=== PATIENT | male | born 1965 | race Two or more races ===

== ENCOUNTER 2019-06-21 19:33 | Emergency (ER) | payer OTHER ==
[2019-06-21 19:55] VITALS: BP 152/97; PULSE 70; TEMP 98.1; BMI 28.1
[2019-06-21] MEDS ORDERED: KETOROLAC TROMETHAMINE 30 MG/1 ML VIAL IVPUSH ONE (19:59)
[2019-06-21] MEDS ORDERED: KETOROLAC TROMETHAMINE 30 MG/1 ML VIAL ONE (20:08)
[2019-06-21 20:31] LABS: BASO % 0.3 % (0-2.0); EOS % 0.7 % (0-4.5); HEMATOCRIT 43.2 % (35.4-49); HEMOGLOBIN 14.7 GM/dl (11.7-16.9); LYMPH % 15.9 % (8-40); MEAN CELL VOLUME 88.3 fl (80-96); MEAN PLT VOLUME 9.1 fl (7.5-11.1); MONO % 6.7 % (3.8-10.2); NEUT % 76.4 % (42.8-82.8); PLATELET COUNT 241 K/MM3 (134-434); RBC 4.89 M/mm3 (4.00-5.60); RDW 11.6 % (11.9-15.9); WHITE BLOOD COUNT 10.6 K/mm3 (4.0-10.8)
[2019-06-21 20:37] LABS: ALBUMIN 4.2 g/dl (3.4-5.0); CALCIUM 9.1 mg/dl (8.5-10); CREATININE 1.3 mg/dl (0.55-1.3); POTASSIUM 3.5 mmol/L (3.5-5.1); TOT PROT 7.7 g/dl (6.4-8.2)
--- NOTE | 2019-06-21 20:42 | PDOC ---
Documentation entered by Sherley Ortiz SCRIBE, acting as scribe for Julio C Lucas MD. Julio C Lucas MD: This documentation has been prepared by the bullibe, Sherley Ortiz SCRIBE, under my direction and personally reviewed by me in its entirety. I confirm that the documentation accurately reflects all work , treatment, procedures, and medical decision making performed by me. History of Present Illness - General Chief Complaint: Pain, Acute Stated Complaint: ABD PAIN History Source: Patient Exam Limitations: No Limitations - History of Present Illness Initial Comments: 06/21/19 20:24 The patient is a 53-year-old male who presents to the emergency department with abdominal pain and urinary retention. The patient presents with lower abdominal pain that radiates down to the suprapubic region, associated with difficulty voiding. The patient reports he gets the urge to void, however when he goes to the bathroom, very little urine comes out. The patient reports he last urinated normally around 3:30 pm. Denies nausea, vomiting, chest pain, shortness of breath, fever, chills, back pain, flank pain. Denies hx of kidney stones or urinary retention. PAST MEDICAL HISTORY: no significant history PAST SURGICAL HISTORY: no significant history FAMILY HISTORY: no pertinent history SOCIAL HISTORY: Pt lives with family and is employed. MEDICATIONS: reviewed ALLERGIES: As per nursing notes Review of system: General: No fevers or chills, no weakness, no weight loss HEENT: No change in vision. No sore throat,. No ear pain CardioVascular: No chest pain or shortness of breath Respiratory:No cough, or wheezing. Gastrointestinal: +abdominal pain. no nausea, vomiting, diarrhea or constipation, No rectal bleeding Genitourinary: +difficulty voiding. No dysuria, hematuria, or frequency Musculoskeletal: No joint or muscle pain or swelling Neurologic: No headache, vertigo, dizziness or loss of consciousness Psychiatric: nor depression Skin: No rashes or easy bruising Endocrine: no increased thirst or abnormal weight change Allergic: no skin or latex allergy All other systems reviewed and normal Physical exam: General: Well-nourished well-developed individual, no acute distress HEENT: Throat: Normal, tonsils normal, no erythema or exudate Neck: Supple, no meningeal signs, no lymphadenopathy Eyes :Pupils equal reactive and round, extraocular motion intact Chest: Nontender to palpation Cardiac: S1-S2 normal, regular rate and rhythm, no murmurs rubs or gallops Respiratory: Lungs clear to auscultation bilateral Abdomen: +tenderness on palpation of the lower abdominal/suprapubic area, no rebound, no flank pain or CVA tenderness. Extremities: Warm, dry, no cyanosis, clubbing, or edema Skin: No rashes Neuro: Alert and oriented x3, nonfocal exam, grossly intact, normal gait Psych: Normal mood and affect. 06/21/19 20:39 Assessment and plan: This is a 53-year-old male who comes in complaining of lower abdominal pain radiating to his testicles. Patient denies history of similar pain in the past. Patient denies history of any blood in his urine or kidney stones. Work-up initiated including spiral CT that showed a 3 mm stone at the right UVJ. Patient's pain resolved in the ED prior to discharge. However I sent a prescription to the pharmacy for naproxen. Otherwise patient's blood work was unremarkable with a normal white count and no evidence of a urinary tract infection. Patient instructed to follow-up with a urologist. 06/21/19 20:40 Past History - Past Medical History Allergies/Adverse Reactions: Allergies Allergy/AdvReac Type Severity Reaction Status Date / Time No Known Allergies Allergy Unverified 06/27/12 03:31 Home Medications: Ambulatory Orders No Home Medications 0 appful .ROUTE DAILY 06/27/12 Naproxen [Naprosyn] 500 mg PO BID #10 tablet 06/21/19 - Immunization History Td Vaccination: No - Psycho Social/Smoking Cessation Hx Smoking Status: No Smoking History: Never smoked Number of Cigarettes Smoked Daily: 0 Hx Alcohol Use: No Abd/GI Specific PMHX - Complaint Specific PMHX Colitis: No Diverticulitis: No Gall Bladder Disease: No GERD: No Hepatitis: No Irritable Bowel Synd (IBS): No Pancreatitis: No GI Ulcer Disease: No *Physical Exam - Vital Signs Last Vital Signs Temp Pulse Resp BP Pulse Ox 98.1 F 70 18 152/97 100 06/21/19 19:34 06/21/19 19:34 06/21/19 19:34 06/21/19 19:34 06/21/19 19:34 ED Treatment Course - LABORATORY CBC & Chemistry Diagram: 06/21/19 20:05 06/21/19 20:05 - ADDITIONAL ORDERS Additional order review: Laboratory Results 06/21/19 20:05 Urine Color Yellow Urine Appearance Clear Urine pH 5.5 Urine Protein Trace Urine Glucose (UA) Negative Urine Ketones Negative Urine Blood 3+ H Urine Nitrite Negative Urine Bilirubin Negative Urine Urobilinogen 0.2 Ur Leukocyte Esterase Negative Urine RBC 20-30 Urine WBC 0-2 06/21/19 20:05 RBC 4.89 MCV 88.3 MCHC 34.0 RDW 11.6 L MPV 9.1 Neutrophils % 76.4 D Lymphocytes % 15.9 D Monocytes % 6.7 Eosinophils % 0.7 Basophils % 0.3 - RADIOLOGY Radiology Studies Ordered: Category Date Time Status SPIRAL- RENAL-STONE CT [CT] Stat CT Scan 06/21/19 20:09 Completed ABDOMEN FLAT & UPRIGHT [RAD] Stat Radiology 06/21/19 19:59 Ordered - Medications Given in the ED: ED Medications Discontinued Medications Generic Name Dose Route Start Last Admin Trade Name Lucy PRN Reason Stop Dose Admin Ketorolac Tromethamine 30 mg 06/21/19 19:59 06/21/19 20:09 Toradol Injection - IVPUSH 06/21/19 20:00 30 mg ONCE ONE Administration Discharge - Discharge Information Problems reviewed: Yes Clinical Impression/Diagnosis: Renal colic on right side Condition: Stable Disposition: HOME - Admission No - Follow up/Referral Referrals: Sylwia Last MD [Primary Care Provider] - Mendel Hinds MD [Staff Physician] - - Patient Discharge Instructions Additional Instructions: If the pain returns take naproxen 1 tablet as often as twice a day. In addition to the naproxen you can also take Tylenol 2 extra strength tablets every 4-6 hours if needed. Follow-up with a urologist call Dr. Hinds in the morning for an appointment. Return to the emergency department immediately with ANY new, persistent or worsening symptoms. Continue any medications as previously prescribed by your physician. You should follow up with your primary doctor as soon as possible regarding today's emergency department visit. . Please make sure your doctor reviews the results of your emergency evaluation. Thank you for coming to the Emergency Department today for your care. It was a pleasure to see you today. Please note that your evaluation is INCOMPLETE until you follow-up with your doctor. - Post Discharge Activity
== END 2019-06-21 20:47 | disposition home or self-care (01) ==
LOC: FER 19:33
PROC: 3E0333Z Introduction of Anti-inflammatory into Peripheral Vein, Percutaneous Approach (ICD-10-PCS; principal; 2019-06-21)
DX: N20.0 Calculus of kidney (principal)
CPT/HCPCS: 36415; 74019-TC-FY; 74176-TC; 80053; 81003; 81015; 85025; 99283-25

== ENCOUNTER 2022-10-30 23:20 | Emergency (ER) | payer OTHER ==
[2022-10-30 23:26] VITALS: BP 130/85; PULSE 90; RESP 16; TEMP 99.2; BMI 28.1
[2022-10-30] MEDS ORDERED: FAMOTIDINE 20 MG TABLET PO ONE (23:37)
[2022-10-30] MEDS ORDERED: MAG HYDROX/AL HYDROX/SIMETH 30 ML UNIT-DOSE CUP PO ONE (23:37)
[2022-10-30] MEDS ORDERED: LIDOCAINE VISCOUS 2% ORAL/TOP 15 ML UNIT-DOSE CUP MM ONE (23:37)
[2022-10-30] MEDS ORDERED: LIDOCAINE VISCOUS 2% ORAL/TOP 15 ML UNIT-DOSE CUP ONE (23:51)
[2022-10-30] MEDS ORDERED: FAMOTIDINE 20 MG/50 ML IVPB 20 MG/50 ML MG IVPB ONE (23:52)
[2022-10-30] MEDS ORDERED: MAG HYDROX/AL HYDROX/SIMETH 30 ML UNIT-DOSE CUP ONE (23:52)
[2022-10-30] MEDS ORDERED: FAMOTIDINE 20 MG TABLET ONE (23:52)
[2022-10-31] MEDS ORDERED: ACETAMINOPHEN INJECTION 100 ML IVPB ONE (00:02)
[2022-10-31 00:52] LABS: BASO % 0.1 % (0-2.0); HEMATOCRIT 37.1 % (35.4-49); HEMOGLOBIN 12.6 GM/dL (11.7-16.9); LYMPH % 10.5 % (8-40); MCH 29.2 pg (25.7-33.7); MEAN CELL VOLUME 85.9 fl (80-96); MEAN PLT VOLUME 8.9 fl (7.5-11.1); MONO % 8.3 % (3.8-10.2); NEUT % 81.1 % (42.8-82.8); PLATELET COUNT 233 10^3/uL (134-434); RBC 4.32 M/mm3 (4.00-5.60); WHITE BLOOD COUNT 14.1 K/mm3 (4.0-10.0)
[2022-10-31 00:57] LABS: EPI CELLS 2 /uL (0-25.1); HYALINE CASTS 0 /uL (0-3.1); PH,URINE 5.5 (5.0-8.0); URINE APPEARANCE CLEAR; URINE BACTERIA 1 /uL (0-1359); URINE BILIRUBIN NEGATIVE (NEGATIVE); URINE COLOR YELLOW; URINE GLUCOSE (UA) TRACE (NEGATIVE); URINE KETONE TRACE (NEGATIVE); URINE LEUK ESTERASE NEGATIVE (NEGATIVE); URINE NITRITE NEGATIVE (NEGATIVE); URINE PROTEIN TRACE (NEGATIVE); URINE RBC 27 /uL (0-23.9); URINE UROBILINOGEN 0.2 mg/dL (0.2-1.0); URINE WBC 4 /uL (0-25.8)
[2022-10-31 01:12] LABS: POTASSIUM 4.2 mmol/L (3.5-5.1)
[2022-10-31 01:15] LABS: ALBUMIN 3.7 g/dl (3.4-5.0); BLOOD UREA NITROGEN 14.3 mg/dL (7-18)
[2022-10-31 01:17] LABS: CREATININE 1.2 mg/dL (0.55-1.3)
[2022-10-31 01:19] LABS: BILIRUBIN,TOTAL 0.6 mg/dL (0.2-1); TOT PROT 7.5 g/dl (6.4-8.2)
== END 2022-10-31 02:41 | disposition home or self-care (01) ==
LOC: FER 23:20
PROC: 3E033NZ Introduction of Analgesics, Hypnotics, Sedatives into Peripheral Vein, Percutaneous Approach (ICD-10-PCS; principal; 2022-10-30)
PROC: 3E033GC Introduction of Other Therapeutic Substance into Peripheral Vein, Percutaneous Approach (ICD-10-PCS; 2022-10-31)
DX: R10.13 Epigastric pain (principal); R50.9 Fever, unspecified; K29.70 Gastritis, unspecified, without bleeding; R31.9 Hematuria, unspecified; Z20.822 Contact with and (suspected) exposure to COVID-19
CPT/HCPCS: 0241U-QW; 36415; 76705-TC; 80053; 81003; 83690; 85025; 87086; 99285-25